=== PATIENT | male | born 1950 | race Caucasian/White ===

== ENCOUNTER → 2017-06-18 | Day surgery (SDC) | payer MEDICARE ==
[~2017-06-18] MED LIST: ATROPINE SULFATE 1% OPHT SOLN 5 ML BTL ONE; DEXAMETHASONE SOD PHOS 4 MG/ML VIAL ONE; FLURBIPROFEN 0.03% OPHT SOLN 2.5 ML BTL ONE; HYALURONIDASE/LIDOCAINE/BUPIVACAINE 5 ML SYR ONE; LACTATED RINGER'S 1000 ML INJ 1,000 ML ONE; LIDOCAINE HCL 1% PF 10 ML VIAL ONE; PHENYLEPHRINE HCL 2.5 % OPTH SOLN 15 ML BTL ONE; PROPOFOL 100 MG/10 ML INJ IV ONE; SODIUM CHLORIDE 0.9% INJ 10 ML ONE; TETRACAINE 0.5% OPTH SOLN 15 ML BTL ONE; TROPICAMIDE 1% OPHT SOLN 15 ML BTL ONE; ceFAZolin INJ 1,000 MG VIAL ONE
--- NOTE | 2017-06-25 09:18 | MP ---
cc: Javier Hendrix MD DATE OF OPERATION: 06/18/2017 PREOPERATIVE DIAGNOSIS: Retinal detachment, vitreous hemorrhage, right eye. POSTOPERATIVE DIAGNOSIS: Retinal detachment, vitreous hemorrhage, right eye. PROCEDURE PERFORMED: Pars plana vitrectomy, endolaser gas fluid exchange, right eye. ANESTHESIA: MAC. SURGEON: Javier Hendrix MD COMPLICATIONS: None. PROCEDURE After informed consent was obtained, the patient was given retrobulbar anesthesia. ?? was then brought to the operating room and prepared and draped in the usual sterile fashion. A wire lid speculum was placed in the patient's right eye. 23-gauge vitrectomy cannulas were then placed in the lower temporal, superotemporal and supranasal quadrants 3 mm posterior to the corneoscleral limbus. An infusion cannula was placed lower temporally. Core vitrectomy was then performed. There was already a posterior vitreous detachment. A vitrectomy was carried out as far as possible to the vitreous base taking care to remove vitreous from around the retinal break. A complete air-fluid exchange was then performed through a posterior retinotomy. The retina flattened nicely. Endolaser was used to treat the retinal breaks as well as the vitreous base for 360 degrees and the retinotomy. The air was then exchanged for a 16% C3F8. The three vitrectomy cannulas were then removed. Subconjunctival injections of dexamethasone and Ancef were placed. An Atropine drop, Maxitrol and a patch and shield were then applied. The patient tolerated the procedure well. There were no complications. He will followup tomorrow in 2 days in my [place] office. Javier Hendrix MD TAB/KD , 10:29 AM , 10:48 AM
== END | disposition home or self-care (01) ==
LOC: ESDC 13:59
PROVIDERS: ATTEND Ophthalmology Retina Specialist
DX: H33.21 Serous retinal detachment, right eye (principal); H43.11 Vitreous hemorrhage, right eye
CPT/HCPCS: 00145; 67108; J0690; J1100; J7120